=== PATIENT | female | born 1985 | race Caucasian/White ===

== ENCOUNTER 2017-05-10 04:50 | Inpatient (IN) | payer MEDICAID ==
[~2017-05-10] VITALS: Ht 152.4 cm; Wt 81.0 kg
[2017-05-10 05:27] VITALS: Ht 152.4 cm; Wt 81.0 kg
[2017-05-10 05:28] VITALS: BP 115/78; PULSE 75; RESP 19
[2017-05-10] MEDS ORDERED: CARBOPROST 250 MCG INJ IM PRN ×2 (06:00→18:00)
[2017-05-10] MEDS ORDERED: LIDOCAINE 1% (MPF) 30 ML INJ INJ PRN (06:00)
[2017-05-10] MEDS ORDERED: MISOPROSTOL 200 MCG TAB PR PRN ×2 (06:00→18:00)
[2017-05-10] MEDS ORDERED: BUTORPHANOL 2 MG INJ IV PRN (06:00)
[2017-05-10] MEDS ORDERED: OXYTOCIN 30 UNITS/LR 500 ML IV PRN ×2 (06:00→18:00)
[2017-05-10] MEDS ORDERED: AMPICILLIN 2 GM/NS (PMX) 100 ML IV ONE (06:00)
[2017-05-10] MEDS ORDERED: METHYLERGONOVINE 0.2 MG INJ IM PRN ×2 (06:00→18:00)
[2017-05-10] MEDS ORDERED: IBUPROFEN 600 MG TAB PO PRN (06:00)
[2017-05-10] MEDS ORDERED: MINERAL OIL LIGHT 10 ML VIAL TOP ONE (06:00)
[2017-05-10] MEDS ORDERED: OXYTOCIN 30 UNITS/LR 500 ML IV SCH (06:00)
--- NOTE | 2017-05-10 06:04 | TRIAGE ---
OB Triage Datetime Report Generated by CPN: 05/10/2017 06:04 Datetime: 05/10/2017 05:55 Stage of : OB Triage Temperature Route: Oral Labor Evaluation Frequency: 1-4.5 Monitor Mode: External Duration (sec)2399: 50-120 Quality: Moderate Pattern: Normal: <= 5 Contractions in 10 Minutes Resting Tone [place]: Relaxed Heart Rate FHR Baseline Rate: 135 Monitor Mode: External US Variability: Moderate 6-25 bpm Accelerations: 15X15 Decelerations: None Category: Category I Pain Assessment Pain Scale: 5 Pain Presence: Intermittent Pain Type: Cramping Pain Location: Abdomen; Back Pain Goal: 3 Pain Relief Measures: Comfort Measures Datetime: 05/10/2017 05:35 Time of Arrival: 05/10/2017 04:49 EGA: 40.0 Arrived By: Wheelchair Arrived From: Home Chief Complaint: ROM AT 0400 Movement: Present Contractions: Irregular Rupture of Membranes: Ruptured Vaginal Discharge: Present Recent Sexual Intercouse: Denies Time Provider Notified: 05/10/2017 05:30 Provider Notified: FRAN Initial Plan: EFM, ASSESSMENT, STERILE SPECULUM, NITRIZINE, ROM PLUS, VE Datetime: 05/10/2017 05:30 Assessment Type: Triage Maternal Assessment Level of Consciousness: Fully Conscious DTR's/Clonus: DTRs 2+; No Clonus Headache: Denies Blurred Vision: No Respiratory Effort: Unlabored; Regular Rhythm; Equal Expansion Breath Sounds, Left: Clear and Equal Breath Sounds, Right: Clear and Equal Nausea/Vomiting: Denies RUQ Epigastric Pain: Denies Lower Extremities Edema: None Upper Extremities Edema: None Facial Edema: None Fall Risk Assessment History of Falling: (0) No Secondary Diagnosis: (0) No Ambulatory Aid: (0) Bedrest/Nurse Assist IV Therapy: (0) No Gait: (0) Normal/Bedrest/Immobile Mental Status: (0) Oriented to Own Ability Fall Score: 0 Fall Risk Score Definition: No Risk: No action required
--- NOTE | 2017-05-10 06:15 | HP ---
Date/Time of Note Date/Time of Note DATE: 05/10/17 TIME: 06:08 OB - History Hx of Present Free Text/Dictation 31 y.o A2(IA) at 40w here after srom at EFM 2-5 min u.c GBS neg VE 3-4/60%/-2 admitted for expectant management. late entry lab was done only 1mo prior to this visit Chief Complaint: srom with u.c's Estimated Due Date: May 10, 2017 : 5 Para: 2 Spontaneous : 0 Therapeutic : 2 Care: Limited Care Ultrasounds: No ultrasounds Obstetrical Complications: None Medical Complications: None Past Family/Social History * Past Medical, Surgical, Family and Obstetric Histories reviewed from chart. Blood Type: A+ Rubella: immune RPR/VDRL: Negative GBS Status: Negative HBsAG: Negative OB Admission Exam Vital Signs Vital Signs Vital Signs Date Time Temp Pulse Resp B/P Pulse Ox O2 Delivery O2 Flow Rate FiO2 05/10/17 05:28 98.3 75 19 115/78 Room Air Physical Exam HEENT: WNL Heart: Rhythm Normal Lungs: Clear, Equal Abdomen: WNL Extremities: Normal Reflexes: Normal Cervical Dilatation: 3cm Effacement: Other (60%) Station: -2 Membranes: Ruptured Amniotic Fluid: Clear Heart Rate: 130's Accelerations: Accelerations Present Decelerations: No Decelerations Varibility: Moderate Contractions on Admission: < 5 Minutes Apart Intensity: Moderate OB Assessment/Plan Reason for admission: rupture of membranes Other Assessment: IUP 40w SROM in labor Plan: Expectant Management GUICHO PETERS MD May 10, 2017 06:15
[2017-05-10] MEDS: LACTATED RINGER'S 1,000 ML IV SCH ×4 (06:43→13:38)
[2017-05-10] MEDS ORDERED: LACTATED RINGER'S 1,000 ML IV PRN (07:00)
[2017-05-10 07:37] LABS: ABNORMAL IP MESSAGE 1; BASOPHILS % 0.2 % (0.0-2.0); EOSINOPHILS # 0.4 10^3/ul (0.0-0.5); EOSINOPHILS % 4.1 % (0.0-7.0); HEMATOCRIT 33.4 % (37.0-47.0); HEMOGLOBIN 10.1 g/dl (12.0-16.0); LYMPHOCYTES # 1.7 10^3/ul (0.8-2.9); LYMPHOCYTES % 19.6 % (15.0-51.0); MEAN CORPUSCULAR HEMOGLOBIN 23.5 pg (29.0-33.0); MEAN CORPUSCULAR HGB CONC 30.2 g/dl (32.0-37.0); MEAN CORPUSCULAR VOLUME 77.7 fl (82.0-101.0); MEAN PLATELET VOLUME 13.8 fl (7.4-10.4); MONOCYTE # 0.6 10^3/ul (0.3-0.9); MONOCYTES % 6.3 % (0.0-11.0); PLATELET COUNT 124 10^3/UL (140-415); POSITIVE DIFF @See below; RED CELL DISTRIBUTION WIDTH 17.2 % (11.5-14.5); WHITE BLOOD COUNT 8.8 10^3/ul (4.8-10.8)
[2017-05-10 07:55] LABS: INR 0.99; PROTIME 13.1 Sec (12.2-14.2)
[2017-05-10 07:56] LABS: PARTIAL THROMBOPLASTIN TIME 27.2 Sec (25.0-35.0)
[2017-05-10] MEDS ORDERED: AMPICILLIN 1 GM/NS (PMX) 50 ML IV SCH (10:00)
[2017-05-10] MEDS ORDERED: FENTAnyl 2MCG/ML-ROPIV 0.2% 100 ML ONE (12:16)
--- NOTE | 2017-05-10 15:04 | LDN ---
Date/Time of Note Date/Time of Note DATE: 05/10/17 TIME: 15:01 Delivery Summary NDVD of a viable infant over intact perineum Weeks of Gestation 40+ Placenta Delivered: Spontaneously, Intact & Complete Meconium: none Episiotomy: No Perineal laceration: 0 Anesthesia type: Epidural Estimated blood loss: 300 Sponge & Needle done & correct: Yes All needle counts correct: Yes Any foreign bodies felt in the: No Problems: Delivery Information Sex Infant Sex: female Apgars 1 Minute: 9 5 Minute: 9 Suctioning Nose & mouth suctioned at ranjit: Yes Delee suction performed: No Umbilical Cord Umbilical cord with: 3 Vessels Cord presentations: nuchal cord Nuchal cord present X: 1 Cord Blood was obtained: Yes Mother & Baby Disposition Disposition Mom & Baby to Maternity; Good: Yes (mother and baby were reovered in good ncondition ) Mom transferred to: Other (maternity) Baby to NICU: No NATHAN WINSTON MD May 10, 2017 15:04
[2017-05-10] MEDS: OXYTOCIN 30 UNITS/LR 500 ML IV SCH ×2 (15:30→16:39)
[2017-05-10 15:51] VITALS: BP 115/60; PULSE 86; RESP 18
[2017-05-10 16:20] VITALS: BP 124/57; PULSE 79; RESP 18
[2017-05-10 17:20] VITALS: BP 131/69; PULSE 63; RESP 19
[2017-05-10] MEDS ORDERED: FENTAnyl 2MCG/ML-ROPIV 0.2% 100 ML BAG EPI SCH (17:24)
[2017-05-10] MEDS ORDERED: NALOXONE (0.4 MG/ML) INJ IV PRN (17:24)
[2017-05-10] MEDS: LACTATED RINGER'S 1,000 ML IV* SCH ×2 (17:34→19:40)
[2017-05-10 17:55] VITALS: BP 127/66; PULSE 65; RESP 19
[2017-05-10] MEDS ORDERED: DIBUCAINE 1% 30 GM OINT PR PRN (18:00)
[2017-05-10] MEDS ORDERED: ZOLPIDEM 5 MG TAB PO PRN (18:00)
[2017-05-10] MEDS ORDERED: HYDROCODONE/APAP (5/325) TAB PO PRN ×2 (18:00)
[2017-05-10] MEDS ORDERED: WITCH HAZEL/GLYCERIN PAD PR PRN (18:00)
[2017-05-10] MEDS ORDERED: LANOLIN 7 GM TUBE TOP PRN (18:00)
[2017-05-10] MEDS ORDERED: BENZOCAINE 20% 56 ML SPRAY TOP PRN (18:00)
[2017-05-10] MEDS: IBUPROFEN 600 MG TAB PO SCH ×2 (18:06→23:54)
[2017-05-10] MEDS: CEPHALEXIN 500 MG CAP PO SCH ×2 (18:07→23:53)
[2017-05-10 19:35] VITALS: BP 116/61; PULSE 75; RESP 19
[2017-05-10] MEDS: MAGNESIUM HYDROXIDE 30ML CUP PO SCH (21:28)
[2017-05-10] MEDS: SENNA/DOCUSATE NA (8.6MG/50MG) TAB PO SCH (21:28)
[2017-05-11] VITALS: BP 119/69; PULSE 79; RESP 19
[2017-05-11 04:05] VITALS: BP 105/55; PULSE 69; RESP 18
[2017-05-11] MEDS: CEPHALEXIN 500 MG CAP PO SCH ×4 (05:36→23:34)
[2017-05-11] MEDS: IBUPROFEN 600 MG TAB PO SCH ×4 (05:36→23:32)
[2017-05-11 07:37] LABS: ABNORMAL IP MESSAGE 1; BASOPHILS % 0.2 % (0.0-2.0); EOSINOPHILS # 0.4 10^3/ul (0.0-0.5); EOSINOPHILS % 2.4 % (0.0-7.0); HEMOGLOBIN 9.1 g/dl (12.0-16.0); LYMPHOCYTES # 1.9 10^3/ul (0.8-2.9); LYMPHOCYTES % 12.9 % (15.0-51.0); MEAN CORPUSCULAR HEMOGLOBIN 23.4 pg (29.0-33.0); MEAN CORPUSCULAR HGB CONC 29.4 g/dl (32.0-37.0); MEAN CORPUSCULAR VOLUME 79.7 fl (82.0-101.0); MONOCYTE # 0.8 10^3/ul (0.3-0.9); MONOCYTES % 5.4 % (0.0-11.0); NEUTROPHILS % 78.5 % (39.0-77.0); PLATELET COUNT 111 10^3/UL (140-415); RED BLOOD COUNT 3.89 10^6/ul (4.20-5.40); RED CELL DISTRIBUTION WIDTH 17.2 % (11.5-14.5); WHITE BLOOD COUNT 14.4 10^3/ul (4.8-10.8)
[2017-05-11 07:43] LABS: POSITIVE DIFF @See below
[2017-05-11 08:20] VITALS: BP 110/61; PULSE 68; RESP 18
[2017-05-11] MEDS: MAGNESIUM HYDROXIDE 30ML CUP PO SCH ×2 (09:00→21:00)
[2017-05-11] MEDS: SENNA/DOCUSATE NA (8.6MG/50MG) TAB PO SCH ×2 (09:00→21:00)
[2017-05-11] MEDS: LACTATED RINGER'S 1,000 ML IV* SCH ×2 (09:34→17:34)
[2017-05-11 12:00] VITALS: BP 101/58; PULSE 75; RESP 17
[2017-05-11 16:00] VITALS: BP 122/63; PULSE 67; RESP 18
--- NOTE | 2017-05-11 18:14 | DS ---
Date/Time of Note Date/Time of Note Home today or next day DATE: 05/11/17 TIME: 18:13 Obstetrical Discharge Record Final Diagnosis Final Diagnosis: Term delivered Other Final Diagnosis Status post vaginal delivery Vaginal Delivery Obstetrical Delivery: Spontaneous Condition on Discharge Physical Assessment Last Vitals: See nurse's notes Voiding: Yes Bowel Movement: Yes Breast: Soft, non-tender, Filling Fundus: Firm Abdomen and Incision: Soft bowel sounds present Episiotomy: Not applicable Calf Tenderness: No Patient Condition: Good NATHAN WINSTON MD May 11, 2017 18:14
[2017-05-11] MEDS ORDERED: IBUP-1542 PO (18:16)
--- NOTE | 2017-05-11 18:16 | PD.PPDC ---
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
[2017-05-11 19:35] VITALS: BP 101/60; PULSE 69; RESP 18
[2017-05-12 03:40] VITALS: BP 99/60; PULSE 69; RESP 19
[2017-05-12] MEDS: LACTATED RINGER'S 1,000 ML IV* SCH ×2 (04:22→09:34)
[2017-05-12] MEDS: CEPHALEXIN 500 MG CAP PO SCH ×2 (05:38→12:22)
[2017-05-12] MEDS: IBUPROFEN 600 MG TAB PO SCH ×2 (05:38→12:22)
[2017-05-12 07:19] LABS: ABNORMAL IP MESSAGE 1; BASOPHILS % 0.3 % (0.0-2.0); EOSINOPHILS # 0.5 10^3/ul (0.0-0.5); EOSINOPHILS % 4.8 % (0.0-7.0); HEMATOCRIT 29.6 % (37.0-47.0); HEMOGLOBIN 8.7 g/dl (12.0-16.0); MEAN CORPUSCULAR HEMOGLOBIN 23.4 pg (29.0-33.0); MEAN CORPUSCULAR HGB CONC 29.4 g/dl (32.0-37.0); MEAN CORPUSCULAR VOLUME 79.6 fl (82.0-101.0); MONOCYTE # 0.5 10^3/ul (0.3-0.9); MONOCYTES % 4.7 % (0.0-11.0); NEUTROPHILS % 71.2 % (39.0-77.0); PLATELET COUNT 109 10^3/UL (140-415); RED BLOOD COUNT 3.72 10^6/ul (4.20-5.40); RED CELL DISTRIBUTION WIDTH 17.2 % (11.5-14.5); WHITE BLOOD COUNT 11.2 10^3/ul (4.8-10.8)
[2017-05-12 07:22] LABS: POSITIVE DIFF @See below
[2017-05-12 08:00] VITALS: BP 106/64; PULSE 57; RESP 18
[2017-05-12] MEDS: SENNA/DOCUSATE NA (8.6MG/50MG) TAB PO SCH (09:00)
[2017-05-12] MEDS: MAGNESIUM HYDROXIDE 30ML CUP PO SCH (09:00)
[2017-05-12] MEDS ORDERED: VARICELLA VACCINE LIVE/PF 1,350 UNIT/0.5 ML ML SC* ONE (09:00)
[2017-05-12] MEDS ORDERED: MEASLES,MUMPS,RUBELLA VACCINE INJ SC* ONE (09:00)
[2017-05-12] MEDS ORDERED: DIPHTH/TET/ACEL PERTUSS (ADULT) 0.5 ML VIAL IM* ONE (09:00)
== END 2017-05-12 15:49 | disposition home or self-care (01) | DRG 775 ==
LOC: OBT 04:50 → L-D 04:50 → OBT 05:50 → L-D 05:50 → PP1 17:21
PROVIDERS: ADMIT Obstetrics & Gynecology; ATTEND Obstetrics & Gynecology
PROC: 10E0XZZ Delivery of Products of Conception, External Approach (ICD-10-PCS; principal; 2017-05-10)
DX: O80 Encounter for full-term uncomplicated delivery (principal); Z37.0 Single live birth; Z3A.40 40 weeks gestation of pregnancy
CPT/HCPCS: 62319; 84112; 85025; 85610; 85730; 86592; 86900; 86901; 87340; 90715; 90716; 99464; G0463; J2590; J3010; J7120

== ENCOUNTER 2018-02-24 19:45 | Emergency (ER) | END 2018-02-25 00:30 | disposition left against medical advice (07) ==

== ENCOUNTER 2018-11-17 21:29 | Emergency (ER) | payer SELFPAY ==
[~2018-11-17] VITALS: Wt 71.0 kg
[~2018-11-17 21:29] MED LIST: IBUP-1542 PO
[2018-11-17 21:33] VITALS: BP 101/63; PULSE 78; RESP 18
[2018-11-18] MEDS ORDERED: CEPH-443 PO (19:10)
[2018-11-18] MEDS ORDERED: ACET325T33 PO (19:10)
== END 2018-11-18 03:43 | disposition left against medical advice (07) ==
LOC: FTE 21:29
DX: Z53.21 Procedure and treatment not carried out due to patient leaving prior to being seen by health care provider (principal)

== ENCOUNTER 2018-11-18 14:03 | Emergency (ER) | payer MEDICAID ==
[~2018-11-18] VITALS: Ht 154.9 cm; Wt 69.8 kg
[2018-11-18 15:21] VITALS: Ht 154.9 cm; Wt 69.8 kg
--- NOTE | 2018-11-18 17:17 | ERD ---
ER Documentation Chief Complaint Chief Complaint 8 WEEKS PREG, VAG BLEED X 2 DAYS HPI 32-year-old female, A2 at approximately 8 weeks by LMP, presents to the emergency department, complaining of 2 days with vaginal spotting, associated with pelvic pressure. The patient has well-established care at [facility]. ROS All systems reviewed and are negative except as per history of present illness. Medications Home Meds Active Scripts Acetaminophen* (Tylenol*) 325 Mg Tablet, 2 TAB PO Q8 PRN for PAIN AND OR ELEVATED TEMP, #20 TAB Prov:OSITO ANTONIO MD 11/18/18 Cephalexin* (Keflex*) 500 Mg Capsule, 500 MG PO QID for 7 Days, CAP Prov:OSITO ANTONIO MD 11/18/18 Ibuprofen* (Ibuprofen*) 600 Mg Tablet, 600 MG PO Q6, #30 TAB 0 Refills Prov:NATHAN WINSTON MD 05/11/17 Allergies Allergies: Coded Allergies: No Known Allergy (Unverified , 05/10/17) PMhx/Soc History of Surgery: No Anesthesia Reaction: No Hx Neurological Disorder: No Hx Respiratory Disorders: No Hx Cardiac Disorders: No Hx Psychiatric Problems: No Hx Miscellaneous Medical Probl: Yes (GESTATIONAL DIABETES) FmHx Family History: No diabetes, No coronary disease Physical Exam Vitals Vital Signs Date Temp Pulse Resp B/P (MAP) Pulse Ox O2 O2 Flow FiO2 Time Delivery Rate 11/18/18 98.7 99 18 110/75 100 Room Air 19:25 (87) 11/18/18 97.9 81 16 105/72 100 15:21 (83) Physical Exam Const: No acute distress Head: Atraumatic Eyes: Normal Conjunctiva ENT: Normal External Ears, Nose and Mouth. Neck: Full range of motion. No meningismus. Resp: Clear to auscultation bilaterally Cardio: Regular rate and rhythm, no murmurs Abd: Soft, non tender, non distended. Normal bowel sounds Skin: No petechiae or rashes Back: No midline or flank tenderness Ext: No cyanosis, or edema Neur: Awake and alert Psych: Normal Mood and Affect Results 24 hrs Laboratory Tests Test 11/18/18 17:22 Urine Color YELLOW Urine Clarity SLIGHTLY CLOUDY Urine pH 7.0 Urine Specific [place] 1.021 Urine Ketones NEGATIVE mg/dL Urine Nitrite NEGATIVE mg/dL Urine Bilirubin NEGATIVE mg/dL Urine Urobilinogen NEGATIVE mg/dL Urine Leukocyte Esterase 2+ Lenka/ul Urine Microscopic RBC > 182 /HPF Urine Microscopic WBC 34 /HPF Urine Squamous Epithelial Cells FEW /HPF Urine Hemoglobin 3+ mg/dL Urine Glucose NEGATIVE mg/dL Urine Total Protein NEGATIVE mg/dl Beta HCG, Quantitative 1961.8 mIU/ml Patient: FELIX TEJEDA : 1985 Age: 32 Sex: F MR #: [id number] DOS: 11/18/18 1714 [facility] MD: OSITO ANTONIO MD Location: [facility] Room/Bed: PROCEDURE: US Obstetrical 1st Trimester CLINICAL INDICATION: Vaginal bleeding at 8 weeks gestation TECHNIQUE: Multiple real-time images were acquired of the patient's maternal abdomen utilizing a curved array transducer. COMPARISON: None FINDINGS: The uterus is normal in size with the sagittal diameter measuring 8.3 cm and the cross diameter measuring 6.4 x 6.1 cm. There is a well implanted gestational sac within the fundus of the uterus with a mean sac diameter of 1.80 cm which corresponds to a gestational sac age of 6 weeks 5 days plus or minus 4 days. A yolk sac is identified. There is a single pole with a crown-rump length of 0.85 cm which corresponds to a gestational age of 6 weeks 6 days plus or minus 3 days. No cardiac activity is identified. The right ovary measures 2.6 x 2.2 x 1.4 cm and appears normal. The left ovary measures 2.4 x 2.2 x 1.5 cm and appears normal. Vascular flow is demonstrated in each ovary on Doppler. No adnexal mass or free fluid is identified IMPRESSION: 1. Intrauterine of unknown viability. There is an intrauterine gesta tional sac with an embryo and yolk sac. [place]-rump length is 0.85 cm and estimated gestational age by crown-rump length is 6 weeks 6 days that is not concordant with the expected gestational age by dates of 8 weeks. At this early gestational age, with the examination done only by transabdominal imaging, an embryonic heart rate is not yet identified and viability cannot be established. Recommend correlation with serum Beta HCG and follow-up ultrasound in 7-10 days or earlier if clinically warranted. 2. Normal ovaries each demonstrating vascular flow on Doppler. 3. No adnexal mass or free fluid is identified. R Physician Heidy Date Time Procedures/MDM Vital signs stable, Physical exam unremarkable. Differential diagnosis include but not limited to: UTI, threatening , incomplete versus complete , ectopic , physiologic implantation bleeding, molar . Physical examination and clinical presentation most likely consistent with threatening versus missed , with a urinary tract infection without evidence of pyelonephritis. During the ED course the patient remained hemodynamically stable and asymptomatic. Results and clinical impression discussed with patient who agrees with management. The patient is stable to be treated outpatient and will be discharged home with close monitoring and follow-up in 1 day with her primary physician. Bed rest and pelvic rest recommended until further medical evaluation. The patient was instructed regarding the outcomes and the potential complications like severe bleeding and . If the patient presents severe bleeding or pain, she was instructed to return to the hospital immediately. Disclaimer: Inadvertent spelling and grammatical errors are likely due to EHR/dictation software use and do not reflect on the overall quality of patient care. Also, please note that the electronic time recorded on this note does not necessarily reflect the actual time of the patient encounter. Departure Diagnosis: Primary Impression: Vaginal bleeding in patient at less than 20 weeks gestation Additional Impression: Urinary tract infection affecting Condition: Stable Patient Instructions: Bleeding During Early Additional Instructions: Muchas ok por [facility] para jasso servicio. Esperamos que en jasso visita a la yrn de emergencia jasso problema medico haya sido solucionado y que se sienta mucho mejor. Para estar seguros que ajsso mejoria sigue en proceso, le pedimos el favor de hacer saumya marci de seguimiento medico con jasso doctor primario en los proximos 2-4 rdz. Lleve con usted estos documentos y las medicinas recetadas. Si vance sintomas empeoran, NO SE ESPERE, por favor regrese a yrn de emergencia INMEDIATAMENTE. En mike que usted no tenga un mdico de atencin primaria: Llame al mdico o clnica comunitaria de referencia que aparece abajo doreen las horas de consultorio para hacer saumya marci para que le vean. CLINICAS: [facility] [phone] [id number] [facility] [phone] [address] [facility] [phone] [address] [place] [id number] [phone] [place] [id number] [phone] [facility] [phone] OSITO GUY MD Nov 18, 2018 17:17
[2018-11-18] MEDS ORDERED: CEPH-443 PO (19:10)
[2018-11-18] MEDS ORDERED: ACET325T33 PO (19:10)
[2018-11-18 19:25] VITALS: BP 110/75; PULSE 99; RESP 18
== END 2018-11-18 19:26 | disposition home or self-care (01) ==
LOC: FTE 14:03
DX: O20.9 Hemorrhage in early pregnancy, unspecified (principal); O23.41 Unspecified infection of urinary tract in pregnancy, first trimester; R10.2 Pelvic and perineal pain; Z3A.08 8 weeks gestation of pregnancy
CPT/HCPCS: 36415; 76801; 81001; 84702; Z7502

== ENCOUNTER 2018-11-21 15:46 | Emergency (ER) | payer MEDICAID ==
[~2018-11-21] VITALS: Ht 157.5 cm; Wt 69.8 kg
[~2018-11-21 15:46] MED LIST changes: +ACET325T33 PO; +CEPH-443 PO
[2018-11-21 15:50] VITALS: RESP 18; Ht 157.5 cm; Wt 69.8 kg
--- NOTE | 2018-11-21 19:16 | ERD ---
ER Documentation Chief Complaint Chief Complaint pt bib family with c/o vag bleeding approx 8 wks preg, seen 3 days ago, HPI Patient is a 32-year-old female, G6, P3, A3?, who presents the ER for concerns of vaginal bleeding times 3 days. Patient states while she was in the waiting room she passed large blood clot in the restroom. Patient states she feels as if it was her fetus. Patient states she continues to use 2-3 pads and it does have blood positive passage. Clot passage. Patient's ATTORNEY is at the [facility]. Patient states she believes she was 8 weeks . She does not know when her last menstrual period was as she states she has irregular periods. ROS All systems reviewed and are negative except as per history of present illness. Medications Home Meds Active Scripts Acetaminophen* (Tylophen*) 500 Mg Capsule, 1 CAP PO Q6H PRN for PAIN AND OR ELEVATED TEMP, #20 CAP Prov:MALU VILLEGAS PA-C 11/21/18 Acetaminophen* (Tylenol*) 325 Mg Tablet, 2 TAB PO Q8 PRN for PAIN AND OR ELEVATED TEMP, #20 TAB Prov:OSITO ANTONIO MD 11/18/18 Cephalexin* (Keflex*) 500 Mg Capsule, 500 MG PO QID for 7 Days, CAP Prov:OSITO ANTONIO MD 11/18/18 Ibuprofen* (Ibuprofen*) 600 Mg Tablet, 600 MG PO Q6, #30 TAB 0 Refills Prov:NATHAN WINSTON MD 05/11/17 Allergies Allergies: Coded Allergies: No Known Allergy (Unverified , 05/10/17) PMhx/Soc Medical and Surgical Hx: pt denies Surgical Hx History of Surgery: No Anesthesia Reaction: No Hx Neurological Disorder: No Hx Respiratory Disorders: No Hx Cardiac Disorders: No Hx Psychiatric Problems: No Hx Miscellaneous Medical Probl: Yes (GESTATIONAL DIABETES) Hx Alcohol Use: No Hx Substance Use: No Hx Tobacco Use: No Smoking Status: Never smoker FmHx Family History: No diabetes Physical Exam Vitals Vital Signs Date Temp Pulse Resp B/P (MAP) Pulse Ox O2 O2 Flow FiO2 Time Delivery Rate 11/21/18 98.6 78 18 114/71 99 15:50 (85) Physical Exam GENERAL: Well-developed, well-nourished female. Appears in no acute distress. HEAD: Normocephalic, atraumatic. EYES: Pupils are equally reactive bilaterally. EOMs grossly intact. No conjunctival erythema. ENT: Moist mucous membranes. No uvula deviation. No kissing tonsils. NECK: Supple. No meningismus. Normal range of motion of the neck. LUNG: Clear to auscultation bilaterally. No rhonchi, wheezing, rales or coarse breath sounds. HEART: Regular rate and rhythm. No murmurs, rubs or gallops. ABDOMEN:. Soft, nontender, and nondistended. Positive bowel sounds in all four quadrants. No rebound tenderness, no guarding. (-) McBurney's point tenderness. No CVA tenderness. FEMALE GENITALIA: Exam was completed with a RN milling machine set up operator present. Normal external female genitalia. Normal vaginal mucosal without lesions. Cervix visualized, small blood clot noted with found in the os opening. Minimal active bleeding at this time. EXTREMITIES: Equal pulses bilaterally. No peripheral clubbing, cyanosis or edema. No unilateral leg swelling. NEUROLOGIC: Alert and oriented. Moving all four extremities without any difficulty. Normal speech. Steady gait. SKIN: Normal color. Warm and dry. No rashes or lesions. Result Diagram: 11/21/181936 Results 24 hrs Laboratory Tests Test 11/21/18 19:37 11/21/18 19:38 White Blood Count 11.8 10^3/ul Red Blood Count 4.76 10^6/ul Hemoglobin 14.3 g/dl Hematocrit 42.9 % Mean Corpuscular Volume 90.1 fl Mean Corpuscular Hemoglobin 30.0 pg Mean Corpuscular Hemoglobin Concent 33.3 g/dl Red Cell Distribution Width 12.6 % Platelet Count 204 10^3/UL Mean Platelet Volume 12.2 fl Immature Granulocytes % 0.400 % Neutrophils % 68.3 % Lymphocytes % 24.5 % Monocytes % 4.1 % Eosinophils % 2.4 % Basophils % 0.3 % Nucleated Red Blood Cells % 0.0 /100WBC Immature Granulocytes # 0.050 10^3/ul Neutrophils # 8.1 10^3/ul Lymphocytes # 2.9 10^3/ul Monocytes # 0.5 10^3/ul Eosinophils # 0.3 10^3/ul Basophils # 0.0 10^3/ul Nucleated Red Blood Cells # 0.0 10^3/ul Beta HCG, Quantitative 799.2 mIU/ml Urine Color YELLOW Urine Clarity SLIGHTLY CLOUDY Urine pH 5.0 Urine Specific [place] 1.024 Urine Ketones NEGATIVE mg/dL Urine Nitrite NEGATIVE mg/dL Urine Bilirubin NEGATIVE mg/dL Urine Urobilinogen NEGATIVE mg/dL Urine Leukocyte Esterase NEGATIVE [place]/ul Urine Microscopic RBC > 182 /HPF Urine Microscopic WBC 4 /HPF Urine Mucus MODERATE /HPF Urine Hemoglobin 3+ mg/dL Urine Glucose NEGATIVE mg/dL Urine Total Protein NEGATIVE mg/dl Current Medications Medications Dose Sig/Iggy Start Time Status Last (Trade) Ordered Route PRN Stop Time Admin Dose Reason Admin 0.2 mg ONCE ONCE 11/21/18 Methylergonov PO 21:00 ine Maleate 11/21/18 21:01 (Methergine) Procedures/MDM ED COURSE: The patient was stable throughout ED course. I kept the patient and/or family informed of laboratory and diagnostic imaging results throughout the ED course. DIAGNOSTIC IMAGING: Read by radiologist. Patient: FELIX TEJEDA : 1985 Age: 32 Sex: F MR #: [id number] DOS: 11/21/18 1901 Ordering MD: MALU VILLEGAS PA-C Location: [facility] Room/Bed: PROCEDURE: US Pelvis. CLINICAL INDICATION: vaginal bleeding TECHNIQUE: Multiple sonographic images of the pelvis were obtained utilizing a transabdominal technique. The images were reviewed on a PACS workstation. COMPARISON: 11/18/2018 FINDINGS: The uterus is normal in size and demonstrates a normal appearance of the myometrium. The uterus measures 8.6 x 6.7 cm in size. The endometrial stripe is heterogeneous in appearance and has the thickness of 28 mm. There is slightly increased vascularity. Previously seen gestational sac and pole are no longer visualized. The ovaries are normal in size and echogenicity. Normal Doppler flow is identified in both ovaries. The right ovary measures 3.2 x 2.0 x 2.4 cm. The left ovary measures 2.6 x 2.2 cm. No free fluid is present within the pelvis.. RPTAT: AA IMPRESSION: Previously seen gestational sac and pole are no longer visualized. Heterogeneous and thickened endometrium with slightly increased vascularity, suspicious for possible retained products of conception.. Follow-up ultrasound and HCG levels is recommended. .Mynor Holliday MD, MD Date Time Electronically viewed and signed by .Mynor Holliday MD, on 11/21/2018 20:24 .S/ CC: MALU VILLEGAS PA-C [phone] MEDICATIONS GIVEN: Methergine Patient tolerated medication well with no adverse reactions. Patient reported improvement in pain. MEDICAL DECISION MAKING: This is a 32-year-old female, G6, P3, A3, presents the ER for concerns of vaginal bleeding times 3 days. Patient states while in the waiting room she did have concerns of passing her fetus in the restroom. She states she flushed it down the toilet. Vital signs were reviewed. Patient was afebrile. Patient was hemodynamically stable. Review of the patient's medical records show that patient was seen here on 11-18-18. At that time her beta-hCG was 1961. Pelvic ultrasound showed intr auterine of unknown viability. There was a gestational sac with an embryo and yolk sac, however no embryonic heart rate was noted. Patient was diagnosed with a threatened at that time. Patient's beta-hCG was noted to be 799. Hemoglobin hematocrit within normal limits. UA did show 3+ blood however no leukocyte esterase or nitrites noted. Patient's blood type was noted to be A+. No indication for RhoGam at this time. Pelvic ultrasound showed Previously seen gestational sac and pole are no longer visualized. Heterogeneous and thickened endometrium with slightly increased vascularity, suspicious for possible retained products of conception.. Follow-up ultrasound and HCG levels is recommended. On exam, patient had minimal bleeding. Patient did have a small blood clot noted in her cervical office. Case was discussed with referring physician Dr. Velez who advised me to call the ATTORNEY dimension warehouse supervisor. Spoke to Dr. Alvarenga, ATTORNEY on- call. She advised me to give the patient Methergine 0.2 mg here in the ER and discharge patient home with a prescription for Methergine every 6 hours times 1 day. Patient was written for Methergine 0.2 mg every 6 hours 3 doses. Patient was encouraged to follow-up with her ATTORNEY at the [facility]. At this time, the patient's presentation is most consistent with spontaneous . Low suspicion for severe anemia or true retained products of conception. Note Methergine prescription was written out by hand. DISCHARGE: At this time, patient is stable for discharge and outpatient management. I had a conversation at length with the patient about the concerns of vaginal bleeding during the 1st trimester of . Patient and/or family understands that her vaginal bleeding can be a normal finding or a sign of miscarriage. I have instructed the patient to follow-up with her OBGYN in 1-2 days for further monitoring including a repeat b-HCG level. I have instructed the patient to promptly return to the ER at any time for any new or worsening symptoms including increased pain, nausea, vomiting, continued bleeding, weakness, syncope or fever. The patient and/or family expressed understanding of and agreement with this plan. All questions were answered. Home care instructions were provided. Disclaimer: Inadvertent spelling and grammatical errors are likely due to EHR/dictation software use and do not reflect on the overall quality of patient care. Also, please note that the electronic time recorded on this note does not necessarily reflect the actual time of the patient encounter. Departure Condition: Fair Referrals: [facility] YOU HAVE RECEIVED A MEDICAL SCREENING EXAM AND THE RESULTS INDICATE THAT YOU DO NOT HAVE A CONDITION THAT REQUIRES URGENT TREATMENT IN THE EMERGENCY DEPARTMENT. FURTHER EVALUATION AND TREATMENT OF YOUR CONDITION CAN WAIT UNTIL YOU ARE SEEN IN YOUR DOCTORS OFFICE WITHIN THE NEXT 1-2 DAYS. IT IS YOUR RESPONSIBILITY TO MAKE AN APPOINTMENT FOR FOLOW-UP CARE. IF YOU HAVE A PRIMARY DOCTOR --you should call your primary doctor and schedule an appointment IF YOU DO NOT HAVE A PRIMARY DOCTOR YOU CAN CALL OUR PHYSICIAN REFERRAL HOTLINE AT IF YOU CAN NOT AFFORD TO SEE A PHYSICIAN YOU CAN CHOSE FROM THE FOLLOWING [facility] [address] [facility] [address] [facility]. [facility] [address] [facility] [address] [facility]. [facility] [address] [facility] [address] [facility]. [facility] YOU HAVE RECEIVED A MEDICAL SCREENING EXAM AND THE RESULTS INDICATE THAT YOU DO NOT HAVE A CONDITION THAT REQUIRES URGENT TREATMENT IN THE EMERGENCY DEPARTMENT. FURTHER EVALUATION AND TREATMENT OF YOUR CONDITION CAN WAIT UNTIL YOU ARE SEEN IN YOUR DOCTORS OFFICE WITHIN THE NEXT 1-2 DAYS. IT IS YOUR RESPONSIBILITY TO MAKE AN APPOINTMENT FOR FOLOW-UP CARE. IF YOU HAVE A PRIMARY DOCTOR --you should call your primary doctor and schedule and appointment IF YOU DO NOT HAVE A PRIMARY DOCTOR YOU CAN CALL OUR PHYSICIAN REFERRAL HOTLINE AT . IF YOU CAN NOT AFFORD TO SEE A PHYSICIAN YOU CAN CHOSE FROM THE FOLLOWING [facility] INSTITUTIONS: [facility] [address] [place] [address] [facility] [address] [place] [address] [facility] [address] [place] [address] [place] [address] [facility] [address] [place], [place] [phone] OFFICE FAX MADYSON MUÑOZ [address] [place], [place] [id number] [place] [address] [place], [place] [id number] [place] [address] [facility], [address] [address] [address] [place], [place] [phone] [facility] [address] [address] [place], [place] [id number] [facility] [id number] - MATT ANDERS [address] [facility] [address] [address], EL[address] [address] [facility]. [address], [facility] [id number], [facility] [address] [place] [address] Additional Instructions: Call your primary care doctor TOMORROW for an appointment during the next 1-2 days.See the doctor sooner or return here if your condition worsens before your appointment time. MALU VILLEGAS PA-C Nov 21, 2018 19:16
[2018-11-21] MEDS ORDERED: ACET500C5 PO (20:55)
[2018-11-21] MEDS ORDERED: METHYLERGONOVINE 0.2 MG TAB PO ONE (21:00)
[2018-11-21 21:08] VITALS: BP 107/57; PULSE 68
== END 2018-11-21 21:13 | disposition home or self-care (01) ==
LOC: FTE 15:46
DX: O20.9 Hemorrhage in early pregnancy, unspecified (principal); Z3A.00 Weeks of gestation of pregnancy not specified
CPT/HCPCS: 36415; 76801; 81001; 84702; 85025; 86900; 86901; Z7502; Z7610